=== PATIENT | female | born 1980 | race Caucasian/White ===

== ENCOUNTER 2022-04-04 17:51 | Emergency (ER) | payer BC, SELFPAY ==
--- NOTE | ~2022-04-04 | XR_ITS ---
EXAMINATION: XR FOOT, LEFT CLINICAL INFORMATION: Pain. COMPARISON: None TECHNIQUE: 3 views of the left foot. FINDINGS: There is an oblique mildly displaced fracture of the midshaft of the proximal phalanx of the fourth toe. Fracture does not involve the articular surface of the bone. There is no dislocation. XR/XR foot LT 2V IMPRESSION: Fracture of proximal phalange of the fourth toe.
[2022-04-04 18:13] VITALS: BP 158/51; PULSE 66; RESP 18; TEMP 36.7; O2SAT 99; BMI 33.0
[2022-04-04] MEDS: Ibuprofen 600 MG TABLET PO (18:18)
--- NOTE | 2022-04-04 19:16 | ED.EXTPRO ---
HPI - Extremity Problem General Chief complaint: Extremity Problem Stated complaint: Foot injury Time Seen by Provider: 04/04/22 19:14 Source: patient Mode of arrival: ambulatory Limitations: no limitations History of Present Illness HPI Narrative: 42-year-old female presents with pain to her left foot status post walking up stairs and walking into a banister. Patient tells me that this occurred just prior to her arrival, she reports that immediately when this happened she started experiencing pain and discomfort to her entire left foot however worse around the 4th and 5th toe. Patient tells me it hurts when she ambulates, moves her toes or bears weight. Denies any previous fractures to that extremity. No previous surgeries to that extremities. Tells me that it feels like her great toe is numb. Intermittent tingling. Patient not on blood thinners. Related Data Allergies Allergy/AdvReac Type Severity Reaction Status Date / Time acetaminophen [From Percocet] Allergy Hives Verified 04/04/22 18:16 oxycodone [From Percocet] Allergy Hives Verified 04/04/22 18:16 phenytoin [From Dilantin] Allergy Hives Verified 04/04/22 18:16 Review of Systems Review of Systems: Constitutional : No Weight loss, No Fever, No Chills, No Fatigue, No Malaise ENT/Mouth : No sore throat, No Rhinorrhea Eyes: No Eye Pain, No Swelling, No Redness Cardiovascular : No Chest Pain, No SOB, No Dyspnea on Exertion, No Orthopnea, No Edema, No Palpitations Respiratory : No Cough, No Sputum, No Wheezing Gastrointestinal : No Nausea, No Vomiting, No Diarrhea, No Constipation, No abdominal Pain, No Hematochezia, No Melena Genitourinary : No Dysuria, No Urinary Frequency, No Hematuria, Musculoskeletal : + joint pain, No Myalgias, + Joint Swelling Skin : No Skin Lesions, No rash Neuro : No Weakness, No Numbness, No Dizziness, No Headache Psych : No Anxiety/Panic, No Depression All other systems reviewed and are negative Yes all other systems are reviewed and are negative [facility] Past Medical History Attestation statement: The following information was validated with the patient. Source: old records reviewed and nursing notes reviewed Social History Social History Advance Directives: No Physical Exam Vital Signs: Vital Signs: Last Vital Signs Temp 98.0 F 04/04/22 18:13 Pulse 66 04/04/22 18:13 Resp 18 04/04/22 18:13 BP 158/51 H 04/04/22 18:13 Pulse Ox 99 04/04/22 18:13 O2 Del Method 04/04/22 18:13 BMI result Body Mass Index 33.0 Vital signs stable Appearance: Alert.? Oriented X3.? No acute distress.? Head: Normocephalic, atraumatic, no step-offs or deformities Eyes: Pupils equal, round and reactive to light.? CVS: Normal heart rate and rhythm.? Pulses normal.? Respiratory: No respiratory distress.? Breath sounds normal.? Abdomen: Soft and nontender.? Skin: Skin warm and dry.? Normal skin color.? Normal skin turgor.? Extremities: No calf ttp. 5/5 strength to bilateral upper and lower extremities. Full range of motion to bilateral toes however painful to left great toe. 2+ dorsalis pedis, anterior tibialis posterior tibialis pulses equal bilateral. Patient ambulating with a limp favoring her right side. Pain with palpation of L. 4th and 5th toes/ metatarsals w/ overlying swelling. . Normal right foot and toes. No foot drop. Normal sensation bilaterally to LE . Neuro: Oriented X 3.? No motor deficit.? No sensory deficit. CN 2-12 intact Course Reevaluation(s) Reevaluation #1: X-ray of the foot showing a fracture of the proximal phalanges of the 4th toe. At this time patient will be placed in a postop shoe and and will be given crutches. Educated on proper use. Will have her follow-up with orthopedics if pain persist in a week or 2. Advised to rest, ice, compress and elevate. At this time I feel comfortable with discharge home with prompt PCP and orthopedic follow-up of necessary. Educated on worrisome signs and symptoms outlined on discharge. Comfortable w/discharge Time: 19:19 MDM - Extremity (Nontraumatic) MDM Narrative Medical decision making narrative: 191 42-year-old female presents with left great toe pain status post walking into a banister, reports pain and swelling at the site. Physical examination significant No calf ttp. 5/5 strength to bilateral upper and lower extremities. Full range of motion to bilateral toes however painful to left great toe. 2+ dorsalis pedis, anterior tibialis posterior tibialis pulses equal bilateral. Patient ambulating with a limp favoring her right side. Pain with palpation of L. 4th and 5th toes/ metatarsals w/ overlying swelling. . Normal right foot and toes. No foot drop. Normal sensation bilaterally to LE Concerns with fracture, dislocation. No signs of threatened limb. Plan at this time is to obtain imaging Medical Records Attestation: I reviewed the patient's medical records. Lab Data Attestation: I reviewed the patient's lab results. Critical Care Time Critical Care Time Critical Care Time: No Discharge Plan Discharge Clinical Impression: Fracture of toe Patient Disposition: Home, Self-Care Instructions: Crutch Instructions (ED), Foot Fracture in Adults (ED), Post Surgical Shoe (ED) Additional Instructions: Take your medications as prescribed. If you were prescribed antibiotics today, it is important that you take your medication to their entirety, do not skip any doses, do not finish them early. Follow-up with your primary care provider this week. If pain continues in a week or 2 you can follow-up with the orthopedic team Return to the emergency department with new or worsening symptoms. Such as fevers, chills, chest pain, shortness of breath, nausea, vomiting, dizziness, headache, vision changes, lethargy, numbness, tingling, severe pain or worsening swelling In case of emergency call 911 You can take ibuprofen every 6 hours, Tylenol every 4 as needed for pain or discomfort XR/XR foot LT 2V IMPRESSION: Fracture of proximal phalange of the fourth toe. Referrals: Physician,Unknown J [Primary Care Provider] - 2 days [facility] [place] [facility] [Provider Group] - 2 weeks Stand Alone Forms: Work/School Release
== END 2022-04-04 20:33 | disposition home or self-care (01) ==
PROVIDERS: Emergency Provider Internal Medicine
DX: S92.512A Displaced fracture of proximal phalanx of left lesser toe(s), initial encounter for closed fracture (principal); W22.09XA Striking against other stationary object, initial encounter; Y93.9 Activity, unspecified; Y92.019 Unspecified place in single-family (private) house as the place of occurrence of the external cause; Y99.9 Unspecified external cause status
CPT/HCPCS: 73620; 99283